=== PATIENT | male | born 1955 | race Caucasian/White ===

== ENCOUNTER 2019-12-13 13:43 | Inpatient (IN) | payer OTHER ==
--- NOTE | 2019-12-13 13:56 | ED ---
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 Patient uses 4L oxygen at home normally. He had to turn his oxygen up to 8L today. He has also been using his nebulizer at home. The patient rates the pain 3/10 in severity. Symptoms aggravated by nothing. Symptoms alleviated by supplemental oxygen and nebulizer. Patient states he has 30% lung capacity in both lungs. He was on lung transplant list at the [facility] a few years ago but taken off because they found out his smokes cigarettes. No recent admissions to hospital in the last few months. No hx DVT, PE, NC. Medications reviewed. Former smoker. Home Medications Medication Instructions Recorded Confirmed Type Albuterol HFA INHALER* [Ventolin 2 puff INH Q4H PRN 10/29/12 06/20/15 History HFA Inhaler*] Lisinopril TAB* [Prinivil TAB 10 10 mg PO DAILY 10/29/12 06/20/15 History MG*] Simvastatin TAB(NF) [Zocor 20 MG 20 mg PO DAILY 10/29/12 06/20/15 History (NF)] Tiotropium CAPSULE (NF) [Spiriva*] 1 cap PO DAILY 10/29/12 06/20/15 History Albuterol 2.5MG/3ML (0.083%)* 2.5 mg INH Q4H PRN 04/29/13 06/20/15 History [Ventolin 2.5 MG/3 ML NEB.ROME*] Aspirin EC TAB* [Aspirin Low Dose 81 mg PO DAILY 04/29/13 06/20/15 History EC*] Calcium Polycarbophil [Fiber 625 mg PO DAILY 04/29/13 06/20/15 History Laxative] Fluticasone-Salmeterol 250-50* 1 puff INH BID 04/29/13 06/20/15 History [Advair Diskus 250-50*] Vitamin E CAP* [Vitamin E] 200 unit PO DAILY 04/29/13 06/20/15 History Budesonide (Inhalation) 06/20/15 06/20/15 History Roflumilast [Daliresp] 500 mcg PO 06/20/15 06/20/15 History predniSONE 20 mg TAB [Deltasone 20 40 mg PO DAILY #8 tab 06/14/16 Rx MG TAB*] - History of Current Complaint Chief Complaint: EDShortnessOfBreath Time Seen by Provider: 12/13/19 13:49 Hx Obtained From: Patient Onset/Duration: Lasting Weeks - 4, Still Present Timing: Constant Current Severity: Mild Aggravating Factors: Nothing Alleviating Factors: Oxygen, Other - nebulizer - Allergy/Home Medications Allergies/Adverse Reactions: Allergies Allergy/AdvReac Type Severity Reaction Status Date / Time No Known Allergies Allergy Verified 12/13/19 13:49 Home Medications: Home Medications Albuterol HFA INHALER* [Ventolin HFA Inhaler*] 2 puff INH Q4H PRN 10/29/12 [ History Confirmed 06/20/15] Lisinopril TAB* [Prinivil TAB 10 MG*] 10 mg PO DAILY 10/29/12 [History Confirmed 06/20/15] Simvastatin TAB(NF) [Zocor 20 MG (NF)] 20 mg PO DAILY 10/29/12 [History Confirmed 06/20/15] Tiotropium CAPSULE (NF) [Spiriva*] 1 cap PO DAILY 10/29/12 [History Confirmed ] Albuterol 2.5MG/3ML (0.083%)* [Ventolin 2.5 MG/3 ML NEB.ROME*] 2.5 mg INH Q4H PRN 04/29/13 [History Confirmed 06/20/15] Aspirin EC TAB* [Aspirin Low Dose EC*] 81 mg PO DAILY 04/29/13 [History Confirmed 06/20/15] Calcium Polycarbophil [Fiber Laxative] 625 mg PO DAILY 04/29/13 [History Confirmed 06/20/15] Fluticasone-Salmeterol 250-50* [Advair Diskus 250-50*] 1 puff INH BID 04/29/13 [ History Confirmed 06/20/15] Vitamin E CAP* [Vitamin E] 200 unit PO DAILY 04/29/13 [History Confirmed ] Budesonide (Inhalation) 06/20/15 [History Confirmed 06/20/15] Roflumilast [Daliresp] 500 mcg PO 06/20/15 [History Confirmed 09/13/15] predniSONE 20 mg TAB [Deltasone 20 MG TAB*] 40 mg PO DAILY #8 tab 06/14/16 [Rx] PMH/Surg Hx/FS Hx/Imm Hx Endocrine/Hematology History: Denies: Hx Anticoagulant Therapy, Hx Diabetes, Hx Thyroid Disease Cardiovascular History: Reports: Hx Hypertension Denies: Hx Congestive Heart Failure, Hx Pacemaker/ICD Respiratory History: Reports: Hx Asthma, Hx Chronic Obstructive Pulmonary Disease (COPD), Hx Pneumonia, Other Respiratory Problems/Disorders - PNEUMONIA Sensory History: Reports: Hx Contacts or Glasses Opthamlomology History: Reports: Hx Contacts or Glasses - Surgical History Surgery Procedure, Year, and Place: Knee surgery 1991 - Immunization History Date of Tetanus Vaccine: Up to date Date of Influenza Vaccine: Fall 2013 Infectious Disease History: No Infectious Disease History: Denies: Hx Hepatitis, Hx Human Immunodeficiency Virus (HIV), Hx of Known/ Suspected MRSA, Traveled Outside the in Last 30 Days - Family History Known Family History: Positive: Cardiac Disease - CHF, Other - strokes - Social History Alcohol Use: Daily Alcohol Amount: 3-4 drinks a day or more Substance Use Type: Reports: None Hx Tobacco Use: Yes Smoking Status (MU): Former Smoker Type: Cigarettes Have You Smoked in the Last Year: Yes Review of Systems Negative: Fever Positive: Shortness Of Breath, Cough All Other Systems Reviewed And Are Negative: Yes Physical Exam - Summary Physical Exam Summary: Constitutional: Well-developed, Well-nourished, Alert. (-) Distressed Skin: Warm, Dry HENT: Normocephalic; Atraumatic Eyes: Conjunctiva normal Neck: Musculoskeletal ROM normal neck. (-) JVD, (-) Stridor, (-) Tracheal deviation Cardio: Rhythm regular, rate normal, Heart sounds normal; Intact distal pulses; The pedal pulses are 2+ and symmetric. Radial pulses are 2+ and symmetric. (-) Murmur Pulmonary/Chest wall: Effort normal. (-) Respiratory distress, Faint bilateral wheezing, (-) Rales Abd: Soft, (-) tenderness, (-) Distension, (-) Guarding, (-) Rebound Musculoskeletal: (-) Edema Lymph: (-) Cervical adenopathy Neuro: Alert, Oriented x3 Psych: Mood and affect Normal Triage Information Reviewed: Yes Vital Signs On Initial Exam: Initial Vitals Temp Pulse Resp BP Pulse Ox 98.1 F 88 26 157/110 100 12/13/19 13:44 12/13/19 13:44 12/13/19 13:44 12/13/19 13:44 12/13/19 13:44 Vital Signs Reviewed: Yes Procedures - Sedation Patient Received Moderate/Deep Sedation with Procedure: No Diagnostics - Vital Signs Vital Signs Temp Pulse Resp BP Pulse Ox 12/13/19 13:44 98.1 F 88 26 157/110 100 - Laboratory Result Diagrams: 12/13/19 14:10 12/13/19 14:10 Lab Statement: Any lab studies that have been ordered have been reviewed, and results considered in the medical decision making process. - Radiology CXR Radiology Interpretation Completed By: Radiologist - IMPRESSION: #. High probability for pneumonia at the RIGHT upper lobe. Radiographic follow-up after therapy warranted to assess for resolution. #. Evidence for advanced chronic obstructive pulmonary disease and emphysema. ED physician has reviewed this imaging report. - EKG 1426 Cardiac Rate: NL - 90 BPM EKG Rhythm: Sinus Rhythm Summary of EKG Findings: No ischemic changes. ED physician has reviewed and interpreted this EKG. Re-Evaluation - Re-Evaluation First Eval Re-Evaluation Time: 15:10 Comment: patient agrees to d/c Course/Dx - Course Course Of Treatment: 64 y/o M with hx COPD c/o worsening shortness of breath and productive cough with clear phlegm x1 month. He uses 4L oxygen at home normally. He had to turn his oxygen up to 8L today. He has also been using his nebulizer at home. He states he has 30% lung capacity in both lungs. [facility]. No recent admissions to hospital in the last few months. Upon physical exam, he has faint bilateral wheezing. Bloodwork results with no significant abnormalities except for RBC 3.79, Hgb 12.8, Hct 36, MCV 96, MCH 34, chloride 100, BNP 128, globulin 4.1. An EKG shows NSR 90 BPM and no ischemic changes. CXR shows #. High probability for pneumonia at the RIGHT upper lobe. Radiographic follow-up after therapy warranted to assess for resolution. #. Evidence for advanced chronic obstructive pulmonary disease and emphysema. In the ED course, the patient was given Duoneb, azithromycin, Solumedrol, normal saline fluids, ceftriaxone. Spoke with Dr. Andrade. She agrees to admit the patient. - Diagnoses Provider Diagnoses: Pneumonia, COPD exacerbation - Physician Notifications Discussed Care of Patient With: Winsome Andrade Time Discussed With Above Provider: 15:07 Instructed by Provider To: Admit As Inpatient Discharge ED - Sign-Out/Discharge Documenting (check all that apply): Patient Departure - Discharge Plan Condition: Stable Disposition: ADMITTED TO [facility] Referrals: Cathy Lindo [Primary Care Provider] - - Billing Disposition and Condition Condition: STABLE Disposition: Admitted to [facility] - Attestation Statements Document Initiated by Scribe: Yes Documenting Scribe: Delmi Beard Provider For Whom Scribe is Documenting (Include Credential): Irineo Soler DO Scribe Attestation: Delmi Quigley scribed for Irineo Soler DO on 12/13/19 at 1526. Scribe Documentation Reviewed: Yes Provider Attestation: The documentation as recorded by the Delmi staton accurately reflects the service I personally performed and the decisions made by Irineo rogers DO Status of Scribgavi Document: Viewed
[2019-12-13] MEDS ORDERED: NS 0.9% 1000 ML** 1,000 ML IV ONE (14:03)
[2019-12-13] MEDS ORDERED: Albuterol/Ipratropium NEB.SOL* Albuterol 2.5 MG/Ipratropium 0.5 MG 3 ML INH ONE ×2 (14:04→14:45)
[2019-12-13 14:18] LABS: ABS Basophils 0.1 10^3/ul (0-0.2); ABS Eosinophils 1.5 10^3/ul (0-0.6); ABS Lymphocytes 1.8 10^3/ul (1.0-4.8); ABS Monocytes 0.6 10^3/ul (0-0.8); ABS Neutrophils 4.6 10^3/ul (1.5-7.7); Eosinophil % 17.4 %; Hematocrit 36 % (42-52); Hemoglobin 12.8 g/dL (14.0-18.0); Lymphocyte % 21.4 %; Mean Corpuscular HGB Conc 35 g/dL (31-36); Mean Corpuscular Hemoglobin 34 pg (27-31); Mean Corpuscular Volume 96 fL (80-94); Mean Platelet Volume 8.1 fL (7.4-10.4); Nucleated Red Blood Cells % 0.1; Platelet Count 362 10^3/uL (150-450); Red Blood Count 3.79 10^6 /uL (4.18-5.48); Red Cell Distribution Width 14 % (10-15); White Blood Count 8.5 10^3/uL (3.5-10.8)
[2019-12-13 14:43] LABS: Troponin I 0.01 ng/mL (<0.03)
[2019-12-13] MEDS ORDERED: cefTRIAXone(*) 1 GM in NS 0.9% 50 ML* 50 ML IVPB ONE (14:44)
[2019-12-13] MEDS ORDERED: Azithromycin 500 mg/250 ml NS 500 MG/250 ML BAG IVPB ONE (14:44)
[2019-12-13] MEDS ORDERED: methylPREDNISolone 125 MG* 2 ML VIAL IV ONE (14:45)
[2019-12-13 14:53] LABS: ALT 29 U/L (7-52); AST 31 U/L (13-39); Albumin 4.3 g/dL (3.2-5.2); Alkaline Phosphatase 96 U/L (34-104); Anion Gap 9 mmol/L (2-11); BUN/Creatinine Ratio 9.9 (8-20); Blood Urea Nitrogen 11 mg/dL (6-24); CO2 Carbon Dioxide 29 mmol/L (22-32); Calcium 10.1 mg/dL (8.6-10.3); Chloride 100 mmol/L (101-111); EGFR African American 80.7 (>60); EGFR Non-African American 66.7 (>60); Globulin 4.1 g/dL (2-4); Glucose 95 mg/dL (70-100); Potassium 4.3 mmol/L (3.5-5.0); Sodium 138 mmol/L (135-145); Total Protein 8.4 g/dL (6.4-8.9)
[2019-12-13] MEDS ORDERED: Ondansetron INJ* 2 MG/ML VIAL IV PRN (15:52)
[2019-12-13] MEDS ORDERED: Albuterol 2.5 MG/3 ML NEB.SOL* (0.083%) INH PRN (15:52)
[2019-12-13 15:56] LABS: C Reactive Protein 5.68 mg/L (<8.01)
[2019-12-13] MEDS: Enoxaparin(*) 40 MG/0.4 ML SYR SUBCUT SCH (16:16)
[2019-12-13] MEDS: Benzonatate CAP* 100 MG PO PRN ×2 (16:16→21:21)
[2019-12-13] MEDS: Acetaminophen TAB* 325 MG PO PRN (16:16)
[2019-12-13 16:23] LABS: Folate > 20.00 ng/mL (>3.99)
--- NOTE | 2019-12-13 20:21 | HP ---
CC: Cathy Lindo NP * ADMISSION HISTORY AND PHYSICAL: DATE OF ADMISSION: 12/13/19 PRIMARY CARE PROVIDER: Cathy Lindo NP MY ATTENDING WHILE IN THE HOSPITAL: Winsome Andrade MD * (DICTATED BY FARZAD KHAN) CHIEF COMPLAINT: Shortness of breath x5 weeks. HISTORY OF PRESENT ILLNESS: Mr. Gonzalez is a 64-year-old male with a past medical history significant for severe COPD, hypertension, hyperlipidemia, who presents to the emergency department after feeling poorly for about 5 weeks. He states this started with upper respiratory infection and cold, where he had nasal drainage and some cough. He does not know where he got this from. He had no sick contacts, no recent changes in his meds; however, he felt poorly with this for about 2 weeks, but then began to feel better, felt about normal for 1 week and then started feeling worse again with worsening cough, shortness of breath, decreased functional capacity. He states he previously walked 110 feet sometimes without oxygen on. At this point, even on 4 L of oxygen, he is unable to walk greater than 30 feet without having to stop. The patient has not changed his medications. The patient has taken what he states 20 total albuterol nebulizers in the past 3 days without much improvement in addition to his chronic COPD treatments. The patient has not been hospitalized for COPD since 2014. The patient follows with abstract manager in [place]. The patient was previously in the lung transplant list, but he has been taken off the lung transplant list. The patient has not traveled outside the country. The patient has no close associates who traveled outside the country or no known foreign associates. The patient in the emergency department was found to be markedly tachypneic, but saturating well on 4 L of oxygen, which is his home dose. The patient denies any chest pain, dizziness, palpitations, fevers, or chills. The patient does have a cough, but it does not bring up much sputum. The patient has not seen his primary care provider for this issue. Due to concern for COPD, aspiration pneumonia, we were asked to evaluate the patient for admission to the hospital PAST MEDICAL HISTORY: 1. COPD. 2. Hypertension. 3. Hyperlipidemia. PAST SURGICAL HISTORY: Bilateral knee surgery. MEDICATIONS: 1. Albuterol nebulizer 2.5 mg inhalation q.4 hours. 2. Albuterol inhaler 2 puffs inhalation q.4 hours. 3. Budesonide/formoterol 160/4.5 two puffs inhalation b.i.d. 4. Lisinopril 20 mg p.o. daily. 5. Roflumilast 500 mcg p.o. daily. 6. Simvastatin 20 mg p.o. daily. 7. Tiotropium 18 mcg inhalation daily. 8. Ferrous sulfate 324 mg p.o. daily. ALLERGIES: No known drug allergies. FAMILY HISTORY: The patient's father at 57 of heart attack and had diabetes. The patient's mother in her 80s of COPD and had congestive heart failure as well. SOCIAL HISTORY: The patient has an 80-pack year smoking history. The patient quit smoking 6 years ago. The patient drinks 2 to 4 beers a day. The patient denies any illicit drug use. 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 The patient is a and has no children. The patient's surrogate decision maker will be long time associate, Ahsan Kelly. REVIEW OF SYSTEMS: A 10-point review of systems was reviewed and is negative except as above in the HPI. PHYSICAL EXAMINATION GENERAL: The patient is a 64-year-old male, who appears stated age, sitting comfortably in bed, in no acute distress with significantly increased work of breathing. VITAL SIGNS: Temperature 98.3, pulse rate 80, respiratory rate 18, oxygen saturation 98% on room air, blood pressure 134/78. HEENT: Head: Normocephalic, atraumatic. Sclerae anicteric. No conjunctival injection. Nasal mucosa moist. Oral mucosa moist. No pharyngeal erythema, discharge, or exudate. NECK: Supple, nontender. No lymphadenopathy. No carotid bruit auscultated. No JVD. RESPIRATORY: Wheezing throughout. Rhonchi heard in the right upper lobe. Poor air exchange. CARDIAC: Tachycardic. No clicks, murmurs, gallops, or rubs. Pulses 2+ in the dorsalis pedis, posterior tibialis, and radial areas. ABDOMEN: Soft, nontender, nondistended. Bowel sounds present. Normoactive in all 4 quadrants. No hepatosplenomegaly. No abdominal bruits auscultated. No hepatojugular reflux. GENITOURINARY: No suprapubic or CVA tenderness. NEURO: Cranial nerves II through XII intact. No focal deficits. Alert and oriented x3. PSYCHIATRIC: Pleasant and cooperative. SKIN: Clean, dry, intact. No rashes. DIAGNOSTIC STUDIES/LAB DATA: White blood cell count 8.5, hemoglobin 12.8, platelet count 362. Sodium 138, potassium 4.3, chloride 100, carbon dioxide 29 , anion gap 9, BUN 11, creatinine 1.11. Lactic acid 1.9. Calcium 10.1. Bilirubin 0.3, AST 31, ALT 29, alkaline phosphatase 96. Troponin I 0.01. CRP 5.68. BNP 128. Protein 8.4. Albumin 4.3, globulin 4.1. Studies: Electrocardiogram shows sinus tachycardia, no ST elevation, depression , or hypertrophy, possible right atrial enlargement, normal axis, intraventricular conduction delay. Chest x-ray read as high probable pneumonia in the right upper lobe. ASSESSMENT AND PLAN: Impression: Mr. Gonzalez is a 64-year-old male with a past medical history significant for chronic obstructive pulmonary disease, hypertension, hyperlipidemia who presents to the emergency department after 5 weeks of feeling poorly with double sickening phenomenon and chest x-ray consistent with bacterial lobar pneumonia. The patient will be admitted to the hospital for treatment of concomitant chronic obstructive pulmonary disease exacerbation and pneumonia. 1. Chronic obstructive pulmonary disease exacerbation, pneumonia. The patient has right upper lobe infiltrate. Though the patient has a CRP of 5.68, given his clinical syndrome and his chest x-ray findings, the patient will be treated with antibiotics. Given the patient's extensive smoking history, the patient to follow up with his abstract manager outpatient after full treatment to assess to see if this represents an underlying lesion. The patient would be likely eligible for a screening CT of his lungs. Regardless, this infiltrate was not present on a 2015 chest thorax CTA. The patient was given Solu-Medrol, antibiotics and DuoNeb nebulizers while in the emergency department. These will be continued as scheduled. The patient will be continued as well on ceftriaxone, azithromycin, and Solu-Medrol 60 mg IV q.12 hours. The patient will also continue on his home roflumilast and triple inhaler therapy. Sputum culture will be attempted to be obtained and urinary antigens for legionella and Strep pneumo will also be obtained. The patient will have aggressive pulmonary toileting and cough suppression as needed. 2. Hypertension. The patient is currently hypertensive. Continue the patient' s lisinopril. 3. Hyperlipidemia. Continue the patient's simvastatin. 4. FEN: The patient will have regular unrestricted diet. Fluids not indicated at this time. 5. Disposition: The patient will be admitted as observation to the hospital. TIME SPENT: Approximately 60 minutes was spent on this admission of this patient, 30 of which was spent [id number] with the patient obtaining history and physical and discussing treatment plan. This plan has been discussed with my attending, Dr. Winsome Andrade, she is in agreement. FARZAD KHAN [id number]/[facility] #: [id number] TEJ
[2019-12-13] MEDS: guaiFENesin ER TAB 600 MG PO SCH (21:21)
[2019-12-13] MEDS: Mometasone/Formoter 200/5 MDI INH SCH (22:03)
[2019-12-13] MEDS: Albuterol/Ipratropium NEB.SOL* Albuterol 2.5 MG/Ipratropium 0.5 MG 3 ML INH SCH ×2 (22:04→22:20)
[2019-12-14] MEDS: Acetaminophen TAB* 325 MG PO PRN ×3 (01:52→15:49)
[2019-12-14] MEDS: Benzocaine/Menthol LOZ* 1 LOZENGE PO PRN ×4 (01:53→21:18)
[2019-12-14] MEDS: Albuterol/Ipratropium NEB.SOL* Albuterol 2.5 MG/Ipratropium 0.5 MG 3 ML INH SCH ×5 (03:56→20:44)
[2019-12-14] MEDS: methylPREDNISolone 125 MG* 2 ML VIAL IV SCH ×2 (05:17→17:52)
[2019-12-14 06:04] LABS: ABS Lymphocytes 1.5 10^3/ul (1.0-4.8); ABS Monocytes 0.2 10^3/ul (0-0.8); ABS Neutrophils 5.5 10^3/ul (1.5-7.7); Eosinophil % 0.1 %; Hematocrit 35 % (42-52); Hemoglobin 12.1 g/dL (14.0-18.0); Mean Corpuscular HGB Conc 35 g/dL (31-36); Mean Corpuscular Hemoglobin 33 pg (27-31); Mean Corpuscular Volume 95 fL (80-94); Mean Platelet Volume 8.3 fL (7.4-10.4); Platelet Count 338 10^3/uL (150-450); Red Blood Count 3.65 10^6 /uL (4.18-5.48); Red Cell Distribution Width 14 % (10-15); White Blood Count 7.3 10^3/uL (3.5-10.8)
[2019-12-14 06:21] LABS: BUN/Creatinine Ratio 15.1 (8-20); Calcium 9.5 mg/dL (8.6-10.3); EGFR African American 69.7 (>60); EGFR Non-African American 57.6 (>60); Magnesium 1.7 mg/dL (1.9-2.7); Potassium 4.3 mmol/L (3.5-5.0)
[2019-12-14] MEDS: Mometasone/Formoter 200/5 MDI INH SCH ×2 (07:17→20:44)
[2019-12-14] MEDS: SPIRIVA Respimat* (tiotropium) 2.5 mcg/inh Inhaler INH SCH (07:17)
[2019-12-14] MEDS ORDERED: Magnesium Sulfate 2 GM IV* 2 GM/50 ML BAG IVPB ONE (07:58)
[2019-12-14] MEDS: Atorvastatin* 10 MG TAB PO SCH (08:34)
[2019-12-14] MEDS: Aspirin EC TAB* 81 MG TAB.EC PO SCH (08:34)
[2019-12-14] MEDS: Ferrous Sulfate TAB* 325 MG PO SCH (08:34)
[2019-12-14] MEDS: Benzonatate CAP* 100 MG PO PRN ×2 (08:35→21:18)
[2019-12-14] MEDS: guaiFENesin ER TAB 600 MG PO SCH ×2 (08:35→21:18)
[2019-12-14] MEDS ORDERED: Lisinopril TAB* 10 MG PO SCH (09:00)
--- NOTE | 2019-12-14 11:00 | PN ---
Subjective Date of Service: 12/14/19 Interval History: Pt reports that he is still feeling poorly. Reports frequent dry cough denies SOB while laying down. Pt denies chest pain, N/V. Family History: Unchanged from Admission Social History: Unchanged from Admission Past Medical History: Unchanged from Admission Objective Active Medications: Acetaminophen (Tylenol Tab*) 650 mg PO Q6H PRN PRN Reason: MILD PAIN or TEMP > 100.4 Last Admin: 12/14/19 08:35 Dose: 650 mg Albuterol (Ventolin 2.5 Mg/3 Ml Neb.Sharon*) 2.5 mg INH Q2H PRN PRN Reason: SOB/WHEEZING Albuterol/Ipratropium (Duoneb (Albuterol 2.5 Mg/Ipratropium 0.5 Mg)) 1 neb INH [id number] AWAKE [facility] Last Admin: 12/14/19 07:15 Dose: 1 neb Aspirin (Aspirin Ec Tab*) 81 mg PO DAILY [facility] Last Admin: 12/14/19 08:34 Dose: 81 mg Atorvastatin Calcium (Lipitor*) 10 mg PO DAILY [facility] Last Admin: 12/14/19 08:34 Dose: 10 mg Benzonatate (Tessalon Cap*) 100 mg PO BID PRN PRN Reason: COUGH Last Admin: 12/14/19 08:35 Dose: 100 mg Enoxaparin Sodium (Lovenox(*)) 40 mg SUBCUT Q24H [facility] Last Admin: 12/13/19 16:16 Dose: 40 mg Ferrous Sulfate (Ferrous Sulfate Tab*) 325 mg PO DAILY [facility] Last Admin: 12/14/19 08:34 Dose: 325 mg Guaifenesin (Mucinex*) 1,200 mg PO BID [facility] Last Admin: 12/14/19 08:35 Dose: 1,200 mg Azithromycin 250 mg/ Sodium (Chloride) 250 mls @ 250 mls/hr IVPB Q24H [facility] Ceftriaxone Sodium 1 gm/ (Sodium Chloride) 50 mls @ 200 mls/hr IVPB Q24H [facility] Lisinopril (Prinivil Tab*) 20 mg PO DAILY [facility] Last Admin: 12/14/19 08:34 Dose: 20 mg Methylprednisolone Sodium Succinate (Solu-Medrol 125mg *) 60 mg IV Q12H [facility] Last Admin: 12/14/19 05:17 Dose: 60 mg Mometasone Furoate/Formoterol Fumar (Dulera 200/5 Mdi*) 2 puff INH BID JAZMINE; Protocol Last Admin: 12/14/19 07:17 Dose: 2 puff Ondansetron HCl (Zofran Inj*) 4 mg IV Q6H PRN PRN Reason: NAUSEA Roflumilast (Daliresp (Nf)) 500 mcg PO DAILY JAZMINE Throat Lozenges (Chloraseptic Cisco*) 1 cisco PO Q6H PRN PRN Reason: SORE THROAT Last Admin: 12/14/19 08:35 Dose: 1 cisco Tiotropium [place] (Spiriva Respimat 2.5 Mcg) 2 puff INH DAILY JAZMINE Last Admin: 12/14/19 07:17 Dose: 2 puff Vital Signs - 8 hr 12/14/19 12/14/19 12/14/19 03:00 07:21 07:23 Temperature 97.8 F Pulse Rate 93 77 Respiratory 20 18 Rate Blood Pressure 147/90 (mmHg) O2 Sat by Pulse 100 99 99 Oximetry Oxygen Devices in Use Now: Nasal Cannula Appearance: Sitting up in bed watching TV chatting with pt volunteer at bedside. No respiratory distress observed. Eyes: No Scleral Icterus, PERRLA Ears/Nose/Mouth/Throat: NL Teeth, Lips, Gums, Clear Oropharnyx, Mucous Membranes Moist Neck: NL Appearance and Movements; NL JVP, Trachea Midline, No Thyroid Enlargement, Masses Respiratory: Symmetrical Chest Expansion and Respiratory Effort, - - Coarse rhonchi and wheezes auscultated throughout all lung whyte. Cardiovascular: NL Sounds; No Murmurs; No JVD, RRR, No Edema Abdominal: NL Sounds; No Tenderness; No Distention, No Hepatosplenomegaly Lymphatic: No Cervical Adenopathy Extremities: No Edema, No Clubbing, Cyanosis Skin: No Rash or Ulcers, No Nodules or Sclerosis Neurological: Alert and Oriented x 3, NL Sensation, NL Muscle Strength and Tone Result Diagrams: 12/14/19 05:38 12/14/19 05:38 Microbiology and Other Data: Microbiology 12/13/19 16:10 Gram Stain - Final Sputum Expectorated Assess/Plan/Problems-Billing Assessment: - Patient Problems (1) Pneumonia Current Visit: Yes Comment: -Wheezes auscultated throughout all lung whyte -CXR shows high probability for Pneumonia Right upper lobe -Ceftriaxone and Azithromycin IV (2) COPD exacerbation Current Visit: No Comment: -The patient reports that he does not feel much better than arrival. Pt continues to have dry hacking cough after periods of talking. -Continue Rofumilast, Spiriva, Dulera, Albuterol nebs. -Start Solumedrol IV -Bensontate and Guaifenesin PRN (3) HTN (hypertension) Current Visit: No Comment: - lisinopril continue to monitor (4) Hyperlipidemia Current Visit: Yes Comment: -Atorvastatin daily (5) Full code status Current Visit: No (6) DVT prophylaxis Current Visit: No Comment: -SQ Lovenox
[2019-12-14] MEDS: ROFLUMILAST 500 MCG PO SCH (14:32)
[2019-12-14] MEDS: Azithromycin IV(*) 250 MG in NS 0.9% 250 ML* 250 ML IVPB SCH (15:49)
[2019-12-14] MEDS: Enoxaparin(*) 40 MG/0.4 ML SYR SUBCUT SCH (15:50)
[2019-12-14] MEDS: cefTRIAXone(*) 1 GM in NS 0.9% 50 ML* 50 ML IVPB SCH (17:40)
[2019-12-14] MEDS: Calcium Carbonate CHEW TAB* 500 MG (TUMS) PO PRN (17:55)
[2019-12-14] MEDS ORDERED: Acetaminophen / Codeine* #3 (300 MG/30 MG) TAB PO ONE (21:30)
[2019-12-15] MEDS: Albuterol/Ipratropium NEB.SOL* Albuterol 2.5 MG/Ipratropium 0.5 MG 3 ML INH SCH ×6 (03:22→19:39)
[2019-12-15] MEDS: methylPREDNISolone 125 MG* 2 ML VIAL IV SCH (05:55)
[2019-12-15] MEDS: Benzocaine/Menthol LOZ* 1 LOZENGE PO PRN ×3 (06:02→15:15)
[2019-12-15] MEDS: Mometasone/Formoter 200/5 MDI INH SCH ×2 (07:38→19:40)
[2019-12-15] MEDS: SPIRIVA Respimat* (tiotropium) 2.5 mcg/inh Inhaler INH SCH (07:38)
[2019-12-15] MEDS: Aspirin EC TAB* 81 MG TAB.EC PO SCH (09:33)
[2019-12-15] MEDS: Ferrous Sulfate TAB* 325 MG PO SCH (09:33)
[2019-12-15] MEDS: Atorvastatin* 10 MG TAB PO SCH (09:33)
[2019-12-15] MEDS: guaiFENesin ER TAB 600 MG PO SCH ×2 (09:34→20:05)
[2019-12-15] MEDS: Magnesium Oxide TAB* 400 MG PO SCH (09:34)
[2019-12-15] MEDS: ROFLUMILAST 500 MCG PO SCH ×2 (09:37→10:48)
[2019-12-15 09:40] LABS: BUN/Creatinine Ratio 20.5 (8-20); Calcium 9.7 mg/dL (8.6-10.3); EGFR African American 75.9 (>60); EGFR Non-African American 62.8 (>60); Potassium 4.1 mmol/L (3.5-5.0)
--- NOTE | 2019-12-15 10:57 | PN ---
Subjective Date of Service: 12/15/19 Interval History: Pt feels "70% better than at admission", nevertheless continues on saying that he still feels very sick and with cough attacks he can't breathe. Family History: Unchanged from Admission Social History: Unchanged from Admission Past Medical History: Unchanged from Admission Objective Active Medications: Acetaminophen (Tylenol Tab*) 650 mg PO Q6H PRN PRN Reason: MILD PAIN or TEMP > 100.4 Last Admin: 12/14/19 15:49 Dose: 650 mg Albuterol (Ventolin 2.5 Mg/3 Ml Neb.Sharon*) 2.5 mg INH Q2H PRN PRN Reason: SOB/WHEEZING Albuterol/Ipratropium (Duoneb (Albuterol 2.5 Mg/Ipratropium 0.5 Mg)) 1 neb INH [id number] AWAKE [facility] Last Admin: 12/15/19 07:35 Dose: 1 neb Aspirin (Aspirin Ec Tab*) 81 mg PO DAILY [facility] Last Admin: 12/15/19 09:33 Dose: 81 mg Atorvastatin Calcium (Lipitor*) 10 mg PO DAILY [facility] Last Admin: 12/15/19 09:33 Dose: 10 mg Benzonatate (Tessalon Cap*) 100 mg PO BID PRN PRN Reason: COUGH Last Admin: 12/14/19 21:18 Dose: 100 mg Calcium Carbonate (Tums*) 500 mg PO Q4H PRN PRN Reason: DYSPEPSIA Last Admin: 12/14/19 17:55 Dose: 500 mg Enoxaparin Sodium (Lovenox(*)) 40 mg SUBCUT Q24H [facility] Last Admin: 12/14/19 15:50 Dose: 40 mg Ferrous Sulfate (Ferrous Sulfate Tab*) 325 mg PO DAILY [facility] Last Admin: 12/15/19 09:33 Dose: 325 mg Guaifenesin (Mucinex*) 1,200 mg PO BID [facility] Last Admin: 12/15/19 09:34 Dose: 1,200 mg Azithromycin 250 mg/ Sodium (Chloride) 250 mls @ 250 mls/hr IVPB Q24H [facility] Last Admin: 12/14/19 15:49 Dose: 250 mls/hr Ceftriaxone Sodium 1 gm/ (Sodium Chloride) 50 mls @ 200 mls/hr IVPB Q24H [facility] Last Admin: 12/14/19 17:40 Dose: 200 mls/hr Magnesium Oxide (Magox 400 Tab*) 800 mg PO DAILY [facility] Last Admin: 12/15/19 09:34 Dose: 800 mg Methylprednisolone Sodium Succinate (Solu-Medrol 125mg *) 40 mg IV Q12H [facility] Mometasone Furoate/Formoterol Fumar (Dulera 200/5 Mdi*) 2 puff INH BID [facility]; Protocol Last Admin: 12/15/19 07:38 Dose: 2 puff Ondansetron HCl (Zofran Inj*) 4 mg IV Q6H PRN PRN Reason: NAUSEA Roflumilast (Daliresp (Nf)) 500 mcg PO DAILY [facility] Last Admin: 12/15/19 10:48 Dose: 500 mcg Throat Lozenges (Chloraseptic Cisco*) 1 cisco PO Q6H PRN PRN Reason: SORE THROAT Last Admin: 12/15/19 08:08 Dose: 1 cisco Tiotropium [place] (Spiriva Respimat 2.5 Mcg) 2 puff INH DAILY [facility] Last Admin: 12/15/19 07:38 Dose: 2 puff Vital Signs - 8 hr 12/15/19 12/15/19 12/15/19 03:10 04:00 07:15 Temperature 97.8 F 98.1 F Pulse Rate 76 79 76 Respiratory 18 17 18 Rate Blood Pressure 133/89 152/87 (mmHg) O2 Sat by Pulse 100 96 100 Oximetry 12/15/19 12/15/19 07:40 08:00 Temperature Pulse Rate 93 Respiratory 18 18 Rate Blood Pressure (mmHg) O2 Sat by Pulse 99 Oximetry Oxygen Devices in Use Now: Nasal Cannula Appearance: 64 yo m in nAD, AAOx3 Eyes: No Scleral Icterus, PERRLA Ears/Nose/Mouth/Throat: NL Teeth, Lips, Gums, Mucous Membranes Moist Neck: NL Appearance and Movements; NL JVP, Trachea Midline Respiratory: Symmetrical Chest Expansion and Respiratory Effort, - - diffuse b/ l wheezes Cardiovascular: NL Sounds; No Murmurs; No JVD, RRR Abdominal: NL Sounds; No Tenderness; No Distention Lymphatic: No Cervical Adenopathy Extremities: No Edema Skin: No Rash or Ulcers, No Nodules or Sclerosis Neurological: Alert and Oriented x 3, NL Muscle Strength and Tone Result Diagrams: 12/14/19 05:38 12/15/19 09:01 Microbiology and Other Data: Microbiology 12/13/19 16:10 Gram Stain - Final Sputum Expectorated Assess/Plan/Problems-Billing Assessment: 64 yo M with h/o 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 -Continue Rofumilast, Spiriva, Dulera, Albuterol nebs. -start tapering down Solumedrol IV (3) HTN (hypertension) Comment: - lisinopril continue to monitor (4) Creatinine elevation Comment: with improvement today, cont to monitor (5) DVT prophylaxis Comment: -SQ Lovenox Status and Disposition: inpatient
[2019-12-15] MEDS: cefTRIAXone(*) 1 GM in NS 0.9% 50 ML* 50 ML IVPB SCH (16:01)
[2019-12-15] MEDS: Enoxaparin(*) 40 MG/0.4 ML SYR SUBCUT SCH (16:02)
[2019-12-15] MEDS: methylPREDNISolone SOD 40 MG* 1 ML VIAL IV SCH (16:02)
[2019-12-15] MEDS: Azithromycin IV(*) 250 MG in NS 0.9% 250 ML* 250 ML IVPB SCH (16:30)
[2019-12-15] MEDS: Acetaminophen TAB* 325 MG PO PRN (23:34)
[2019-12-15] MEDS: Calcium Carbonate CHEW TAB* 500 MG (TUMS) PO PRN (23:35)
[2019-12-16] MEDS: Albuterol/Ipratropium NEB.SOL* Albuterol 2.5 MG/Ipratropium 0.5 MG 3 ML INH SCH ×5 (00:24→19:48)
[2019-12-16] MEDS: methylPREDNISolone SOD 40 MG* 1 ML VIAL IV SCH (03:52)
[2019-12-16] MEDS: Benzonatate CAP* 100 MG PO PRN (03:52)
[2019-12-16] MEDS: Benzocaine/Menthol LOZ* 1 LOZENGE PO PRN ×2 (07:33→22:51)
[2019-12-16] MEDS: Mometasone/Formoter 200/5 MDI INH SCH ×2 (07:44→19:48)
[2019-12-16] MEDS: SPIRIVA Respimat* (tiotropium) 2.5 mcg/inh Inhaler INH SCH (07:45)
[2019-12-16] MEDS: Lisinopril TAB* 10 MG PO SCH (09:24)
[2019-12-16] MEDS: ROFLUMILAST 500 MCG PO SCH (09:24)
[2019-12-16] MEDS: guaiFENesin ER TAB 600 MG PO SCH (09:24)
[2019-12-16] MEDS: Atorvastatin* 10 MG TAB PO SCH (09:24)
[2019-12-16] MEDS: Magnesium Oxide TAB* 400 MG PO SCH (09:24)
[2019-12-16] MEDS: Aspirin EC TAB* 81 MG TAB.EC PO SCH (09:24)
[2019-12-16] MEDS: Ferrous Sulfate TAB* 325 MG PO SCH (09:24)
[2019-12-16] MEDS ORDERED: Phenol 1.4% Spray* 177 ML BTL MT PRN (13:06)
[2019-12-16] MEDS ORDERED: guaiFENesin 100 mg/5 ml LIQ unit dose cup PO PRN (13:07)
[2019-12-16] MEDS: cefTRIAXone(*) 1 GM in NS 0.9% 50 ML* 50 ML IVPB SCH (16:18)
--- NOTE | 2019-12-16 16:41 | PN ---
Subjective Date of Service: 12/16/19 Interval History: Pt c/o sore throat, cough is getting better. Able to talk nonstop for several minutes, appears very hyperactive. Family History: Unchanged from Admission Social History: Unchanged from Admission Past Medical History: Unchanged from Admission Objective Active Medications: Acetaminophen (Tylenol Tab*) 650 mg PO Q6H PRN PRN Reason: MILD PAIN or TEMP > 100.4 Last Admin: 12/15/19 23:34 Dose: 650 mg Albuterol (Ventolin 2.5 Mg/3 Ml Neb.Sharon*) 2.5 mg INH Q2H PRN PRN Reason: SOB/WHEEZING Albuterol/Ipratropium (Duoneb (Albuterol 2.5 Mg/Ipratropium 0.5 Mg)) 1 neb INH [id number] AWAKE [facility] Aspirin (Aspirin Ec Tab*) 81 mg PO DAILY [facility] Last Admin: 12/16/19 09:24 Dose: 81 mg Atorvastatin Calcium (Lipitor*) 10 mg PO DAILY [facility] Last Admin: 12/16/19 09:24 Dose: 10 mg Benzonatate (Tessalon Cap*) 100 mg PO BID PRN PRN Reason: COUGH Last Admin: 12/16/19 03:52 Dose: 100 mg Calcium Carbonate (Tums*) 500 mg PO Q4H PRN PRN Reason: DYSPEPSIA Last Admin: 12/15/19 23:35 Dose: 500 mg Enoxaparin Sodium (Lovenox(*)) 40 mg SUBCUT Q24H [facility] Last Admin: 12/15/19 16:02 Dose: 40 mg Ferrous Sulfate (Ferrous Sulfate Tab*) 325 mg PO DAILY [facility] Last Admin: 12/16/19 09:24 Dose: 325 mg Guaifenesin (Robitussin 100 Mg/5ml Liq) 5 ml PO Q4H PRN PRN Reason: COUGH Azithromycin 250 mg/ Sodium (Chloride) 250 mls @ 250 mls/hr IVPB Q24H [facility] Last Admin: 12/15/19 16:30 Dose: 250 mls/hr Ceftriaxone Sodium 1 gm/ (Sodium Chloride) 50 mls @ 200 mls/hr IVPB Q24H [facility] Last Admin: 12/16/19 16:18 Dose: 200 mls/hr Lisinopril (Prinivil Tab*) 20 mg PO DAILY [facility] Last Admin: 12/16/19 09:24 Dose: 20 mg Magnesium Oxide (Magox 400 Tab*) 800 mg PO DAILY [facility] Last Admin: 12/16/19 09:24 Dose: 800 mg Mometasone Furoate/Formoterol Fumar (Dulera 200/5 Mdi*) 2 puff INH BID [facility]; Protocol Last Admin: 12/16/19 07:44 Dose: 2 puff Ondansetron HCl (Zofran Inj*) 4 mg IV Q6H PRN PRN Reason: NAUSEA Phenol/Menthol (Chloroseptic Throat Faith*) 1 spray MT TID PRN PRN Reason: SORE THROAT Prednisone (Deltasone 20 Mg Tab) 60 mg PO DAILY [facility] Roflumilast (Daliresp (Nf)) 500 mcg PO DAILY [facility] Last Admin: 12/16/19 09:24 Dose: 500 mcg Throat Lozenges (Chloraseptic Cisco*) 1 cisco PO Q6H PRN PRN Reason: SORE THROAT Last Admin: 12/16/19 07:33 Dose: 1 cisco Tiotropium [place] (Spiriva Respimat 2.5 Mcg) 2 puff INH DAILY [facility] Last Admin: 12/16/19 07:45 Dose: 2 puff Vital Signs - 8 hr 12/16/19 12/16/19 11:15 11:32 Temperature 98.4 F Pulse Rate 104 99 Respiratory 15 21 Rate Blood Pressure 136/83 (mmHg) O2 Sat by Pulse 99 100 Oximetry Oxygen Devices in Use Now: Nasal Cannula Appearance: 64 yo M in nAD, aAOx3 Eyes: No Scleral Icterus, PERRLA Ears/Nose/Mouth/Throat: NL Teeth, Lips, Gums, Mucous Membranes Moist Neck: NL Appearance and Movements; NL JVP, Trachea Midline Respiratory: Symmetrical Chest Expansion and Respiratory Effort, - - wheezes b/ l improving Cardiovascular: NL Sounds; No Murmurs; No JVD Abdominal: NL Sounds; No Tenderness; No Distention, No Hepatosplenomegaly Lymphatic: No Cervical Adenopathy Extremities: No Edema, No Clubbing, Cyanosis Skin: No Rash or Ulcers, No Nodules or Sclerosis Neurological: Alert and Oriented x 3, NL Muscle Strength and Tone Result Diagrams: 12/14/19 05:38 12/15/19 09:01 Microbiology and Other Data: Microbiology 12/13/19 16:10 Gram Stain - Final Sputum Expectorated Assess/Plan/Problems-Billing Assessment: 64 yo M with h/o 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 -Solumedrol IV to Prednisone PO in AM (3) HTN (hypertension) Comment: - cont lisinopril continue to monitor (4) Creatinine elevation Comment: improved (5) DVT prophylaxis Comment: -SQ Lovenox Status and Disposition: inpatient
[2019-12-16] MEDS: Azithromycin IV(*) 250 MG in NS 0.9% 250 ML* 250 ML IVPB SCH (16:52)
[2019-12-16] MEDS: Enoxaparin(*) 40 MG/0.4 ML SYR SUBCUT SCH (16:55)
[2019-12-17] MEDS: Albuterol/Ipratropium NEB.SOL* Albuterol 2.5 MG/Ipratropium 0.5 MG 3 ML INH SCH ×3 (01:10→13:02)
[2019-12-17] MEDS: Benzocaine/Menthol LOZ* 1 LOZENGE PO PRN (07:18)
[2019-12-17] MEDS: SPIRIVA Respimat* (tiotropium) 2.5 mcg/inh Inhaler INH SCH (07:35)
[2019-12-17] MEDS: Mometasone/Formoter 200/5 MDI INH SCH (07:35)
[2019-12-17] MEDS: Lisinopril TAB* 10 MG PO SCH (08:10)
[2019-12-17] MEDS: Atorvastatin* 10 MG TAB PO SCH (08:10)
[2019-12-17] MEDS: Ferrous Sulfate TAB* 325 MG PO SCH (08:10)
[2019-12-17] MEDS: ROFLUMILAST 500 MCG PO SCH (08:10)
[2019-12-17] MEDS: Magnesium Oxide TAB* 400 MG PO SCH (08:10)
[2019-12-17] MEDS: Aspirin EC TAB* 81 MG TAB.EC PO SCH (08:10)
[2019-12-17] MEDS: Calcium Carbonate CHEW TAB* 500 MG (TUMS) PO PRN (08:11)
[2019-12-17] MEDS ORDERED: Azithromycin TAB* 250 MG PO ONE (11:52)
[2019-12-17 15:31] VITALS: BP 162/94
--- NOTE | 2019-12-18 00:21 | DS ---
CC: Cathy Lindo NP * DISCHARGE SUMMARY: DATE OF ADMISSION: 12/14/19 DATE OF DISCHARGE: 12/17/19 PRIMARY CARE PROVIDER: Cathy Lindo NP from [place]. DISPOSITION AT DISCHARGE: Home. CONDITION ON DISCHARGE: Stable. DISCHARGE DIAGNOSES: 1. Pneumonia. 2. Chronic obstructive pulmonary disease exacerbation. 3. Acute respiratory failure on top of chronic respiratory failure, hypoxemic. The patient has been discharged on oxygen continuously 4 to 5 liters nasal cannula. SECONDARY DIAGNOSES: 1. Mild creatinine elevation at admission, likely due to acute illness. 2. Chronic obstructive pulmonary disease chronic with chronic hypoxic respiratory failure at baseline at 3 to 4 liters of oxygen at home. 3. Hypertension. 4. Hyperlipidemia. MEDICATIONS ON DISCHARGE: Include: 1. Prednisone taper 40 mg daily for 2 days and 20 mg daily for 2 days and 10 mg daily for 2 days and stop. 2. Cefdinir 300 mg b.i.d. for the next 2 days to continue 7 days treatment of cephalosporin third generation. Patient completed azithromycin treatment during his hospital stay. Remaining medications that are unchanged from admission and from home include: 1. Albuterol inhaler on p.r.n. basis. 2. Albuterol nebulizer on p.r.n. basis. 3. Aspirin 81 mg daily. 4. Symbicort 160/4.5 two inhalations b.i.d. 5. Ferrous sulfate 325 mg daily. 6. Lisinopril 20 mg daily. 7. Roflumilast 500 mcg daily. 8. Zocor 20 mg daily. 9. Spiriva one inhalation daily. DIAGNOSTIC STUDIES/LAB DATA: Laboratory data and studies performed during the hospital stay included: On 12/14/19, white blood cell count 7.3, hemoglobin 12.1, hematocrit 35 and platelets of 338. Sodium 139, potassium 4.1, chloride 103, carbon dioxide 29, BUN 24, creatinine 1.17. Liver functions were performed on admission and they were unremarkable. HOSPITALIZATION COURSE: Leo Gonzalez is a 64-year-old male with history of significant COPD, who stated that he used to be on lung transplant list and he has "30% of his lungs left," who presented to the hospital complaining of shortness of breath for 5 weeks with cough, increasing hypoxemia. The patient was febrile on presentation and did not have a marked leukocytosis on evaluation in the ED. His portable chest x-ray showed, impression: "High probability for pneumonia in the right upper lobe. resolution. Evidence of advanced chronic obstructive pulmonary disease and emphysema." The patient was admitted to the hospital treated with broad spectrum antibiotics. His microbiology studies were negative for strep pneumo antigen and legionella antigen in the urine and blood. Cultures showed no growth for 3 days. Sputum culture showed "normal Marli." The patient did very well on antibiotics and parenteral steroid treatment. He slowly improved with his bronchospasm as well as oxygen need, although he is little bit higher with his oxygen needs at his baseline and he has been discharged on 4 to 5 liters of oxygen. Today, prior to discharge, he ambulated with oxygen of 4 liters with good exercise tolerance. He is going to be discharged home with recommendation to follow up with Cathy Lindo in 4 to 7 days. PHYSICAL EXAM: At the time of discharge, blood pressure of 131/81, heart rate of 78 and regular, respiratory rate 17, oxygen saturation 99% on 5 liters of oxygen nasal cannula, temperature 98.1. General: The patient is a very pleasant 64-year- old male, who is not in acute distress. He is alert and oriented x3. HEENT: Head: Atraumatic, normocephalic. Eyes: Pupils are equal , reactive to light and accommodation. Oropharynx is clear. Mucosa moist. Neck: Supple. No JVD. No bruits bilaterally. Cardiovascular: Regular rate and rhythm. No murmurs. Respiratory: Distant breath sounds throughout with scant wheezes in bilateral mid and lower lungs much improved from prior. Abdomen: Soft, nontender. Bowel sounds are present in all 4 quadrants. Extremities: There is no edema. Pulses are +2 bilaterally. No clubbing or cyanosis. On neuro evaluation, speech clear. Cranial nerves II through XII grossly intact. Motor strength is 5/5 bilaterally. Please note that this is a short summary of the patient's hospitalization. Please refer to further medical records for details. TIME SPENT: Approximately 40 minutes was spent in preparation of the patient's discharge. [id number]/CPS #: [id number] MTDD
== END 2019-12-17 12:25 | disposition home or self-care (01) | DRG 193 ==
LOC: ED 13:43 → MED 15:53 → OBSVTOIN 12-14 13:29
PROVIDERS: ADMIT Internal Medicine; ATTEND Internal Medicine
DX: J18.9 Pneumonia, unspecified organism (principal); J96.21 Acute and chronic respiratory failure with hypoxia; J44.0 Chronic obstructive pulmonary disease with (acute) lower respiratory infection; J44.1 Chronic obstructive pulmonary disease with (acute) exacerbation; Z99.81 Dependence on supplemental oxygen; I10 Essential (primary) hypertension; E78.5 Hyperlipidemia, unspecified; J98.01 Acute bronchospasm; Z79.51 Long term (current) use of inhaled steroids; Z79.899 Other long term (current) drug therapy; Z83.3 Family history of diabetes mellitus; Z82.49 Family history of ischemic heart disease and other diseases of the circulatory system; Z82.5 Family history of asthma and other chronic lower respiratory diseases; Z87.891 Personal history of nicotine dependence; R82.998 Other abnormal findings in urine
CPT/HCPCS: 36415; 71045; 80048; 80053; 82607; 82746; 83605; 83735; 83880; 84484; 85025; 86140; 87040; 87070; 87205; 87899; 93005; 94640; 96365; 96375; 99283; A9270-GY; G0378; J0456; J0696; J1650; J2920; J2930; J3475; J3535; J7512

== ENCOUNTER 2022-06-13 19:51 | Inpatient (IN) ==
[2022-06-13] MEDS ORDERED: Lactated Ringers SEPSIS* BAG 2,250 ML IV ONE (20:42)
[2022-06-13 21:42] LABS: Hematocrit 31 % (42-52); Hemoglobin 10.2 g/dL (14.0-18.0); Mean Corpuscular HGB Conc 33 g/dL (31-36); Mean Corpuscular Hemoglobin 33 pg (27-31); Mean Corpuscular Volume 99 fL (80-94); Mean Platelet Volume 9.7 fL (7.4-10.4); Platelet Count 500 10^3/uL (150-450); Red Blood Count 3.11 10^6 /uL (4.18-5.48); Red Cell Distribution Width 17 % (10-15); White Blood Count 24.3 10^3/uL (3.5-10.8)
[2022-06-13 21:51] LABS: Activated Partial Thrombo Time 30.8 seconds (26.0-38.0); INR 1.23 (0.89-1.11)
[2022-06-13 22:11] LABS: Potassium 4.4 mmol/L (3.5-5.0)
[2022-06-13 22:12] LABS: Albumin 2.3 g/dL (3.2-5.2); Albumin/Globulin Ratio 0.5 (1-3); C Reactive Protein 370.8 mg/L (<8.01); Calcium 8.6 mg/dL (8.6-10.3); Globulin 4.4 g/dL (2-4); Total Bilirubin 1.4 mg/dL (0.2-1.0); Total Protein 6.7 g/dL (6.4-8.9); eGFR CKD-EPI 25.5 (>60)
[2022-06-13] MEDS ORDERED: Cefepime 2 GM in Dextrose 2 GM/50 ML BAG IV ONE (22:30)
[2022-06-13] MEDS ORDERED: Vancomycin 1,000 MG in NS 0.9% 250 ml 250 ML IVPB ONE (22:30)
[2022-06-13 22:36] LABS: RBC Morphology Normal (Normal)
[2022-06-13 22:37] LABS: ABS Basophils 0.2 10^3/ul (0-0.2); ABS Eosinophils 0.3 10^3/ul (0-0.6); ABS Lymphocytes 1.8 10^3/ul (1.0-4.8); ABS Monocytes 1.8 10^3/ul (0-0.8); ABS Neutrophils 20.2 10^3/ul (1.5-7.7); Eosinophil % 1.4 %; Lymphocyte % 7.3 %
[2022-06-13 23:27] LABS: Rapid Strep Molecular Negative (Negative)
[2022-06-13 23:56] LABS: High Sensitivity Troponin 1 Hr 15 pg/mL (<20)
[2022-06-14] MEDS ORDERED: Vancomycin per Pharmacy 1 EA NOTE FOLLOW UP SCH (01:00)
[2022-06-14] MEDS ORDERED: NS 0.9% 1000 ml BAG 1,000 ML IV SCH ×2 (01:00→16:17)
[2022-06-14 01:01] LABS: Urine Appearance Clear; Urine Bilirubin Negative (Negative); Urine Blood Negative (Negative); Urine Color Yellow; Urine Glucose Negative (Negative); Urine Ketones Negative (Negative); Urine Nitrite Negative (Negative); Urine Protein 1+ (30 mg/dL) (Negative); Urine Urobilinogen 1.0 (Negative) (Negative); Urine pH 5.5 (5.0-9.0)
[2022-06-14 01:13] LABS: Urine Bacteria Absent (Absent); Urine Red Blood Cell Trace(0-2/hpf) (Absent); Urine White Blood Cell Trace(0-5/hpf) (Absent)
[2022-06-14] MEDS ORDERED: Azithromycin 500 MG IV - ED ONCE IVPB ONE (02:00)
[2022-06-14] MEDS ORDERED: Enoxaparin 30 MG/0.3 ML SYR SUBCUT SCH (02:00)
[2022-06-14] MEDS ORDERED: Albuterol HFA INHALER 8 gm MDI INH PRN (02:06)
[2022-06-14] MEDS: Enoxaparin 30 MG/0.3 ML SYR SUBCUT SCH (03:19)
[2022-06-14] MEDS ORDERED: Famotidine IV 10 MG/ML 2 ml VIAL (20 mg) IV SLOW PU ONE (04:11)
[2022-06-14] MEDS ORDERED: Benzocaine/Menthol LOZ MT ONE (04:12)
[2022-06-14] MEDS ORDERED: Al Hydrox/Mg Hydrox/Simet LIQ 30 ML UDC PO ONE (04:12)
[2022-06-14 06:31] LABS: Hematocrit 28 % (42-52); Hemoglobin 9.5 g/dL (14.0-18.0); Mean Corpuscular HGB Conc 34 g/dL (31-36); Mean Corpuscular Hemoglobin 33 pg (27-31); Mean Corpuscular Volume 98 fL (80-94); Platelet Count 461 10^3/uL (150-450); Red Blood Count 2.84 10^6 /uL (4.18-5.48); Red Cell Distribution Width 16 % (10-15); White Blood Count 25.8 10^3/uL (3.5-10.8)
[2022-06-14 06:49] LABS: Blood Urea Nitrogen 49 mg/dL (6-24); CO2 Carbon Dioxide 25 mmol/L (22-32); Calcium 8.2 mg/dL (8.6-10.3); Chloride 104 mmol/L (101-111); Glucose 108 mg/dL (70-100); Sodium 137 mmol/L (135-145); eGFR CKD-EPI 31.5 (>60)
[2022-06-14] MEDS: Aspirin EC 81 mg TAB.EC (enteric coated) PO SCH (07:51)
[2022-06-14 07:52] LABS: Anion Gap 8 mmol/L (2-11)
[2022-06-14] MEDS: CMCS: Roflumilast 500 mcg TAB (NF) PO SCH (07:52)
[2022-06-14] MEDS: Mometasone/Formoter 200/5 MDI INH SCH ×2 (08:13→19:04)
[2022-06-14] MEDS: SPIRIVA Respimat (tiotropium) 2.5 mcg/inh Inhaler INH SCH (08:14)
[2022-06-14 08:46] LABS: ABS Basophils 0.1 10^3/ul (0-0.2); ABS Eosinophils 1.3 10^3/ul (0-0.6); ABS Lymphocytes 1.9 10^3/ul (1.0-4.8); ABS Monocytes 2.1 10^3/ul (0-0.8); ABS Neutrophils 20.5 10^3/ul (1.5-7.7); Eosinophil % 4.9 %; Lymphocyte % 7.2 %
[2022-06-14 08:49] LABS: Hypochromasia 2+; Macrocytosis 3+; Target Cells 2+
[2022-06-14] MEDS ORDERED: Vancomycin Random Level NOTE FOLLOW UP ONE (12:00)
[2022-06-14] MEDS: Cefepime 1 GM in Dextrose 1 GM/50 ML BAG IV SCH ×2 (13:05→23:27)
[2022-06-14] MEDS ORDERED: guaiFENesin/CODIENE 100mg/10mg 5 ML UDC PO ONE (15:46)
[2022-06-14] MEDS ORDERED: Levalbuterol 1.25MG/0.5ML NEB.SOL INH ONE (15:50)
[2022-06-14] MEDS: Levalbuterol 1.25MG/0.5ML NEB.SOL INH SCH (19:01)
[2022-06-14] MEDS: methylPREDNISolone SOD SUCC 40 mg/ml 1 ml VIAL IV SCH (20:05)
[2022-06-14] MEDS: guaiFENesin/CODIENE 100mg/10mg 5 ML UDC PO PRN (20:09)
[2022-06-15] MEDS: Levalbuterol 1.25MG/0.5ML NEB.SOL INH SCH ×4 (00:36→19:27)
[2022-06-15] MEDS: guaiFENesin/CODIENE 100mg/10mg 5 ML UDC PO PRN ×3 (00:54→21:33)
[2022-06-15] MEDS: methylPREDNISolone SOD SUCC 40 mg/ml 1 ml VIAL IV SCH ×3 (02:53→17:46)
[2022-06-15] MEDS ORDERED: Benzocaine/Menthol LOZ MT ONE (03:39)
[2022-06-15] MEDS: Enoxaparin 30 MG/0.3 ML SYR SUBCUT SCH (05:05)
[2022-06-15] MEDS ORDERED: Azithromycin 500 mg/250 ml NS 500 MG/250 ML BAG IVPB SCH (06:00)
[2022-06-15 06:17] LABS: Hematocrit 28 % (42-52); Hemoglobin 9.1 g/dL (14.0-18.0); Mean Corpuscular HGB Conc 33 g/dL (31-36); Mean Corpuscular Hemoglobin 33 pg (27-31); Mean Corpuscular Volume 99 fL (80-94); Mean Platelet Volume 10.1 fL (7.4-10.4); Platelet Count 404 10^3/uL (150-450); Red Blood Count 2.79 10^6 /uL (4.18-5.48); Red Cell Distribution Width 16 % (10-15); White Blood Count 24.9 10^3/uL (3.5-10.8)
[2022-06-15 06:26] LABS: ABS Basophils 0.1 10^3/ul (0-0.2); ABS Lymphocytes 1.8 10^3/ul (1.0-4.8); ABS Monocytes 0.9 10^3/ul (0-0.8); ABS Neutrophils 22.1 10^3/ul (1.5-7.7); Eosinophil % 0.1 %; Lymphocyte % 7.3 %
[2022-06-15 06:38] LABS: ALT 16 U/L (7-52); AST 42 U/L (13-39); Albumin 1.9 g/dL (3.2-5.2); Albumin/Globulin Ratio 0.5 (1-3); Alkaline Phosphatase 137 U/L (35-149); Anion Gap 10 mmol/L (2-11); Blood Urea Nitrogen 47 mg/dL (6-24); CO2 Carbon Dioxide 21 mmol/L (22-32); Calcium 8.2 mg/dL (8.6-10.3); Chloride 106 mmol/L (101-111); Glucose 161 mg/dL (70-100); Potassium 4.8 mmol/L (3.5-5.0); Sodium 137 mmol/L (135-145); Total Protein 5.9 g/dL (6.4-8.9); eGFR CKD-EPI 36.8 (>60)
[2022-06-15] MEDS: Mometasone/Formoter 200/5 MDI INH SCH ×2 (08:24→19:27)
[2022-06-15] MEDS: SPIRIVA Respimat (tiotropium) 2.5 mcg/inh Inhaler INH SCH (08:24)
[2022-06-15] MEDS: Aspirin EC 81 mg TAB.EC (enteric coated) PO SCH (08:58)
[2022-06-15] MEDS: Cefepime 1 GM in Dextrose 1 GM/50 ML BAG IV SCH ×2 (10:46→22:25)
[2022-06-15 10:48] LABS: Folate 7.04 ng/mL (5.90-24.80)
[2022-06-15 10:49] LABS: Vitamin B12 > 1450 pg/mL (180-914)
[2022-06-15] MEDS: CMCS: Roflumilast 500 mcg TAB (NF) PO SCH (10:57)
[2022-06-15] MEDS: NS 0.9% 1000 ml BAG 1,000 ML IV SCH (10:58)
[2022-06-15] MEDS: Benzocaine/Menthol LOZ PO PRN ×2 (12:09→21:33)
[2022-06-15] MEDS: metroNIDAZOLE IV 500 MG/100ML 500 MG/100 ML BAG IVPB SCH (14:55)
[2022-06-16] MEDS: Levalbuterol 1.25MG/0.5ML NEB.SOL INH SCH ×4 (00:34→19:39)
[2022-06-16] MEDS: NS 0.9% 1000 ml BAG 1,000 ML IV SCH ×3 (00:42→18:42)
[2022-06-16] MEDS: metroNIDAZOLE IV 500 MG/100ML 500 MG/100 ML BAG IVPB SCH (01:01)
[2022-06-16] MEDS: methylPREDNISolone SOD SUCC 40 mg/ml 1 ml VIAL IV SCH ×3 (01:58→18:42)
[2022-06-16] MEDS: guaiFENesin/CODIENE 100mg/10mg 5 ML UDC PO PRN ×4 (02:06→21:39)
[2022-06-16] MEDS: Benzocaine/Menthol LOZ PO PRN ×3 (05:18→21:39)
[2022-06-16] MEDS: Enoxaparin 30 MG/0.3 ML SYR SUBCUT SCH (05:19)
[2022-06-16 06:16] LABS: Hematocrit 25 % (42-52); Hemoglobin 8.1 g/dL (14.0-18.0); Mean Corpuscular HGB Conc 33 g/dL (31-36); Mean Corpuscular Hemoglobin 33 pg (27-31); Mean Corpuscular Volume 99 fL (80-94); Mean Platelet Volume 9.9 fL (7.4-10.4); Platelet Count 391 10^3/uL (150-450); Red Blood Count 2.49 10^6 /uL (4.18-5.48); Red Cell Distribution Width 16 % (10-15)
[2022-06-16 06:33] LABS: Calcium 7.9 mg/dL (8.6-10.3); Potassium 4.7 mmol/L (3.5-5.0); eGFR CKD-EPI 38.2 (>60)
[2022-06-16] MEDS: SPIRIVA Respimat (tiotropium) 2.5 mcg/inh Inhaler INH SCH (07:25)
[2022-06-16] MEDS: Mometasone/Formoter 200/5 MDI INH SCH ×2 (07:27→20:01)
[2022-06-16] MEDS: Aspirin EC 81 mg TAB.EC (enteric coated) PO SCH (09:29)
[2022-06-16] MEDS: CMCS: Roflumilast 500 mcg TAB (NF) PO SCH (09:29)
[2022-06-16 09:33] LABS: ABS Lymphocytes 1.9 10^3/ul (1.0-4.8); ABS Monocytes 1.1 10^3/ul (0-0.8); Lymphocyte % 9.8 %
[2022-06-16] MEDS: Cefepime 1 GM in Dextrose 1 GM/50 ML BAG IV SCH ×2 (11:26→22:52)
[2022-06-16 11:50] LABS: HIV 4th Generation Nonreactive (Nonreactive)
[2022-06-17] MEDS: Levalbuterol 1.25MG/0.5ML NEB.SOL INH SCH ×4 (01:35→20:09)
[2022-06-17] MEDS: metroNIDAZOLE IV 500 MG/100ML 500 MG/100 ML BAG IVPB SCH ×2 (01:45→13:53)
[2022-06-17] MEDS: methylPREDNISolone SOD SUCC 40 mg/ml 1 ml VIAL IV SCH ×2 (01:45→10:29)
[2022-06-17] MEDS: Benzocaine/Menthol LOZ PO PRN ×2 (04:51→23:21)
[2022-06-17] MEDS: guaiFENesin/CODIENE 100mg/10mg 5 ML UDC PO PRN ×2 (04:51→23:21)
[2022-06-17] MEDS: Enoxaparin 30 MG/0.3 ML SYR SUBCUT SCH (04:54)
[2022-06-17 07:54] LABS: Hematocrit 25 % (42-52); Hemoglobin 8.5 g/dL (14.0-18.0); Mean Corpuscular HGB Conc 34 g/dL (31-36); Mean Corpuscular Hemoglobin 34 pg (27-31); Mean Corpuscular Volume 99 fL (80-94); Mean Platelet Volume 9.4 fL (7.4-10.4); Platelet Count 374 10^3/uL (150-450); Red Blood Count 2.53 10^6 /uL (4.18-5.48); Red Cell Distribution Width 16 % (10-15); White Blood Count 14.8 10^3/uL (3.5-10.8)
[2022-06-17] MEDS: SPIRIVA Respimat (tiotropium) 2.5 mcg/inh Inhaler INH SCH (07:55)
[2022-06-17] MEDS: Mometasone/Formoter 200/5 MDI INH SCH ×2 (07:56→20:09)
[2022-06-17 08:20] LABS: ABS Lymphocytes 1.5 10^3/ul (1.0-4.8); ABS Neutrophils 12.3 10^3/ul (1.5-7.7); Lymphocyte % 10.1 %
[2022-06-17 08:21] LABS: Target Cells 1+
[2022-06-17 08:32] LABS: Calcium 8.2 mg/dL (8.6-10.3); Potassium 4.9 mmol/L (3.5-5.0); eGFR CKD-EPI 35.7 (>60)
[2022-06-17] MEDS: Aspirin EC 81 mg TAB.EC (enteric coated) PO SCH (10:28)
[2022-06-17] MEDS: CMCS: Roflumilast 500 mcg TAB (NF) PO SCH (10:29)
[2022-06-17] MEDS: Cefepime 1 GM in Dextrose 1 GM/50 ML BAG IV SCH ×2 (10:33→23:26)
[2022-06-17] MEDS: NS 0.9% 1000 ml BAG 1,000 ML IV SCH ×3 (11:26→23:24)
[2022-06-17] MEDS ORDERED: Polyethylene Glycol 3350 17 GM PACKET PO PRN (16:24)
[2022-06-17] MEDS ORDERED: Senna TAB 8.6 mg TAB PO PRN (16:24)
[2022-06-18] MEDS: Levalbuterol 1.25MG/0.5ML NEB.SOL INH SCH ×4 (00:56→21:30)
[2022-06-18] MEDS: metroNIDAZOLE IV 500 MG/100ML 500 MG/100 ML BAG IVPB SCH ×2 (02:09→13:05)
[2022-06-18] MEDS ORDERED: Calcium Carb (TUMS) 500 mg CHEW TAB PO ONE (02:19)
[2022-06-18] MEDS: Enoxaparin 30 MG/0.3 ML SYR SUBCUT SCH (05:04)
[2022-06-18 06:06] LABS: Calcium 7.7 mg/dL (8.6-10.3); Potassium 4.4 mmol/L (3.5-5.0); eGFR CKD-EPI 40.7 (>60)
[2022-06-18] MEDS: Aspirin EC 81 mg TAB.EC (enteric coated) PO SCH (07:38)
[2022-06-18] MEDS: CMCS: Roflumilast 500 mcg TAB (NF) PO SCH (07:39)
[2022-06-18] MEDS: NS 0.9% 1000 ml BAG 1,000 ML IV SCH (07:41)
[2022-06-18] MEDS: SPIRIVA Respimat (tiotropium) 2.5 mcg/inh Inhaler INH SCH (08:00)
[2022-06-18] MEDS: Mometasone/Formoter 200/5 MDI INH SCH ×2 (08:00→21:31)
[2022-06-18] MEDS: Cefepime 1 GM in Dextrose 1 GM/50 ML BAG IV SCH ×2 (10:12→22:46)
[2022-06-18] MEDS: Benzocaine/Menthol LOZ PO PRN ×2 (13:00→22:39)
[2022-06-18] MEDS: guaiFENesin/CODIENE 100mg/10mg 5 ML UDC PO PRN (22:39)
[2022-06-19] MEDS: Levalbuterol 1.25MG/0.5ML NEB.SOL INH SCH ×4 (01:56→19:12)
[2022-06-19] MEDS: metroNIDAZOLE IV 500 MG/100ML 500 MG/100 ML BAG IVPB SCH ×2 (02:03→14:13)
[2022-06-19] MEDS: guaiFENesin/CODIENE 100mg/10mg 5 ML UDC PO PRN ×3 (02:08→22:44)
[2022-06-19] MEDS: Benzocaine/Menthol LOZ PO PRN ×2 (02:09→22:44)
[2022-06-19] MEDS: Enoxaparin 30 MG/0.3 ML SYR SUBCUT SCH (05:34)
[2022-06-19] MEDS: Mometasone/Formoter 200/5 MDI INH SCH ×2 (07:54→19:13)
[2022-06-19] MEDS: SPIRIVA Respimat (tiotropium) 2.5 mcg/inh Inhaler INH SCH (07:54)
[2022-06-19] MEDS: CMCS: Roflumilast 500 mcg TAB (NF) PO SCH (09:29)
[2022-06-19] MEDS: Aspirin EC 81 mg TAB.EC (enteric coated) PO SCH (09:29)
[2022-06-19] MEDS: Cefepime 1 GM in Dextrose 1 GM/50 ML BAG IV SCH (12:14)
[2022-06-19] MEDS: cefTRIAXone 1 gm/50 mL D5W 1 GM/50 ML BAG IV SCH (12:30)
[2022-06-19 13:13] LABS: C Reactive Protein 69.18 mg/L (<8.01)
[2022-06-19] MEDS: Nystatin SUSPENSION 100,000 UNITS/ML UDC PO SCH ×2 (17:42→22:45)
[2022-06-20] MEDS: Levalbuterol 1.25MG/0.5ML NEB.SOL INH SCH ×4 (01:05→19:57)
[2022-06-20] MEDS: metroNIDAZOLE IV 500 MG/100ML 500 MG/100 ML BAG IVPB SCH ×2 (02:02→13:23)
[2022-06-20] MEDS: guaiFENesin/CODIENE 100mg/10mg 5 ML UDC PO PRN ×5 (02:48→21:30)
[2022-06-20] MEDS: Benzocaine/Menthol LOZ PO PRN ×5 (05:02→21:30)
[2022-06-20] MEDS: Enoxaparin 30 MG/0.3 ML SYR SUBCUT SCH (05:05)
[2022-06-20 05:32] LABS: Hematocrit 25 % (42-52); Mean Corpuscular HGB Conc 32 g/dL (31-36); Mean Corpuscular Hemoglobin 31 pg (27-31); Mean Corpuscular Volume 98 fL (80-94); Platelet Count 377 10^3/uL (150-450); Red Blood Count 2.58 10^6 /uL (4.18-5.48); Red Cell Distribution Width 17 % (10-15)
[2022-06-20 05:48] LABS: ABS Basophils 0.1 10^3/ul (0-0.2); ABS Eosinophils 0.1 10^3/ul (0-0.6); ABS Lymphocytes 2.4 10^3/ul (1.0-4.8); ABS Monocytes 1.9 10^3/ul (0-0.8); ABS Neutrophils 22.4 10^3/ul (1.5-7.7); Eosinophil % 0.4 %
[2022-06-20 06:02] LABS: Calcium 7.6 mg/dL (8.6-10.3); Potassium 3.8 mmol/L (3.5-5.0); eGFR CKD-EPI 51.1 (>60)
[2022-06-20] MEDS: Mometasone/Formoter 200/5 MDI INH SCH ×2 (07:55→19:57)
[2022-06-20] MEDS: SPIRIVA Respimat (tiotropium) 2.5 mcg/inh Inhaler INH SCH (07:55)
[2022-06-20] MEDS: CMCS: Roflumilast 500 mcg TAB (NF) PO SCH (09:43)
[2022-06-20] MEDS: Nystatin SUSPENSION 100,000 UNITS/ML UDC PO SCH ×4 (09:43→20:52)
[2022-06-20] MEDS: Aspirin EC 81 mg TAB.EC (enteric coated) PO SCH ×2 (09:43→20:52)
[2022-06-20] MEDS: cefTRIAXone 1 gm/50 mL D5W 1 GM/50 ML BAG IV SCH (12:37)
[2022-06-20] MEDS ORDERED: Potassium Chlor 20 meq TAB.ER PO ONE (15:55)
[2022-06-20] MEDS ORDERED: Ondansetron 4 mg VIAL 2 MG/ML 2 ml VIAL IV PRN (21:39)
[2022-06-21] MEDS: Levalbuterol 1.25MG/0.5ML NEB.SOL INH SCH ×4 (01:07→19:14)
[2022-06-21] MEDS: metroNIDAZOLE IV 500 MG/100ML 500 MG/100 ML BAG IVPB SCH ×2 (01:53→13:39)
[2022-06-21] MEDS: Benzocaine/Menthol LOZ PO PRN ×2 (05:13→23:26)
[2022-06-21] MEDS: guaiFENesin/CODIENE 100mg/10mg 5 ML UDC PO PRN (05:13)
[2022-06-21 05:31] LABS: Hematocrit 23 % (42-52); Hemoglobin 7.5 g/dL (14.0-18.0); Mean Corpuscular HGB Conc 32 g/dL (31-36); Mean Corpuscular Hemoglobin 32 pg (27-31); Mean Corpuscular Volume 99 fL (80-94); Mean Platelet Volume 9.9 fL (7.4-10.4); Platelet Count 378 10^3/uL (150-450); Red Blood Count 2.38 10^6 /uL (4.18-5.48); Red Cell Distribution Width 16 % (10-15); White Blood Count 24.3 10^3/uL (3.5-10.8)
[2022-06-21 05:43] LABS: ABS Basophils 0.1 10^3/ul (0-0.2); ABS Eosinophils 0.1 10^3/ul (0-0.6); ABS Lymphocytes 2.7 10^3/ul (1.0-4.8); ABS Neutrophils 19.3 10^3/ul (1.5-7.7); Eosinophil % 0.4 %; Lymphocyte % 11.3 %
[2022-06-21 06:14] LABS: Calcium 7.5 mg/dL (8.6-10.3); Magnesium 1.6 mg/dL (1.9-2.7); Potassium 4.5 mmol/L (3.5-5.0); eGFR CKD-EPI 50.3 (>60)
[2022-06-21] MEDS ORDERED: Magnesium Sulfate 2 gm BAG 2 GM/50 ML BAG IVPB ONE (07:05)
[2022-06-21] MEDS ORDERED: Iron Sucrose 200 MG in NS 0.9% 100 ml BAG 100 ML IVPB ONE (07:10)
[2022-06-21 08:02] LABS: Ferritin 1069.4 ng/mL (24-336)
[2022-06-21] MEDS: Mometasone/Formoter 200/5 MDI INH SCH ×2 (08:43→19:15)
[2022-06-21] MEDS: SPIRIVA Respimat (tiotropium) 2.5 mcg/inh Inhaler INH SCH (08:54)
[2022-06-21] MEDS: Nystatin SUSPENSION 100,000 UNITS/ML UDC PO SCH ×4 (10:14→19:08)
[2022-06-21] MEDS: CMCS: Roflumilast 500 mcg TAB (NF) PO SCH (10:20)
[2022-06-21] MEDS: cefTRIAXone 1 gm/50 mL D5W 1 GM/50 ML BAG IV SCH (11:16)
[2022-06-21] MEDS ORDERED: Digoxin IV 0.5 MG/2 ML AMP (0.25 MG/ML) IV SLOW PU ONE ×2 (13:16→19:00)
[2022-06-21] MEDS: Aspirin EC 81 mg TAB.EC (enteric coated) PO SCH (19:07)
[2022-06-22] MEDS: Levalbuterol 1.25MG/0.5ML NEB.SOL INH SCH ×4 (01:11→19:42)
[2022-06-22 06:38] LABS: Hematocrit 24 % (42-52); Hemoglobin 7.5 g/dL (14.0-18.0); Mean Corpuscular HGB Conc 32 g/dL (31-36); Mean Corpuscular Hemoglobin 32 pg (27-31); Mean Corpuscular Volume 99 fL (80-94); Mean Platelet Volume 10.1 fL (7.4-10.4); Platelet Count 407 10^3/uL (150-450); Red Blood Count 2.39 10^6 /uL (4.18-5.48); Red Cell Distribution Width 17 % (10-15); White Blood Count 22.3 10^3/uL (3.5-10.8)
[2022-06-22] MEDS: Mometasone/Formoter 200/5 MDI INH SCH ×2 (07:02→19:42)
[2022-06-22] MEDS: SPIRIVA Respimat (tiotropium) 2.5 mcg/inh Inhaler INH SCH (07:02)
[2022-06-22 07:04] LABS: Calcium 7.7 mg/dL (8.6-10.3); Magnesium 1.8 mg/dL (1.9-2.7); Potassium 4.4 mmol/L (3.5-5.0); eGFR CKD-EPI 52.8 (>60)
[2022-06-22] MEDS ORDERED: Magnesium Sulfate 2 gm BAG 2 GM/50 ML BAG IVPB ONE (07:18)
[2022-06-22 07:37] LABS: ABS Lymphocytes 2.6 10^3/ul (1.0-4.8); ABS Monocytes 1.8 10^3/ul (0-0.8); ABS Neutrophils 17.8 10^3/ul (1.5-7.7); Eosinophil % 0.2 %; Lymphocyte % 11.7 %; Target Cells 2+
[2022-06-22 08:00] LABS: Digoxin 1.6 ng/ml (0.8-2.0)
[2022-06-22] MEDS: Nystatin SUSPENSION 100,000 UNITS/ML UDC PO SCH ×4 (08:33→20:22)
[2022-06-22] MEDS: CMCS: Roflumilast 500 mcg TAB (NF) PO SCH (08:34)
[2022-06-22] MEDS ORDERED: Ondansetron 4 mg VIAL 2 MG/ML 2 ml VIAL IV PRN (10:22)
[2022-06-22] MEDS: cefTRIAXone 1 gm/50 mL D5W 1 GM/50 ML BAG IV SCH (12:13)
[2022-06-22] MEDS: Aspirin EC 81 mg TAB.EC (enteric coated) PO SCH (20:23)
[2022-06-23] MEDS: Levalbuterol 1.25MG/0.5ML NEB.SOL INH SCH ×3 (02:27→13:03)
[2022-06-23] MEDS: Mometasone/Formoter 200/5 MDI INH SCH (06:54)
[2022-06-23] MEDS: SPIRIVA Respimat (tiotropium) 2.5 mcg/inh Inhaler INH SCH ×2 (06:54→07:02)
[2022-06-23] MEDS: CMCS: Roflumilast 500 mcg TAB (NF) PO SCH (09:44)
[2022-06-23] MEDS: Nystatin SUSPENSION 100,000 UNITS/ML UDC PO SCH ×3 (09:45→16:55)
[2022-06-23 09:56] LABS: Hematocrit 25 % (42-52); Mean Corpuscular HGB Conc 32 g/dL (31-36); Mean Corpuscular Hemoglobin 32 pg (27-31); Mean Corpuscular Volume 99 fL (80-94); Mean Platelet Volume 9.8 fL (7.4-10.4); Platelet Count 478 10^3/uL (150-450); Red Blood Count 2.54 10^6 /uL (4.18-5.48); Red Cell Distribution Width 17 % (10-15); White Blood Count 27.5 10^3/uL (3.5-10.8)
[2022-06-23 10:16] LABS: Calcium 7.8 mg/dL (8.6-10.3); Magnesium 1.8 mg/dL (1.9-2.7); Potassium 4.1 mmol/L (3.5-5.0); eGFR CKD-EPI 60.8 (>60)
[2022-06-23] MEDS ORDERED: Magnesium Sulfate 2 gm BAG 2 GM/50 ML BAG IVPB ONE (11:31)
[2022-06-23 11:42] LABS: C Reactive Protein 57.73 mg/L (<8.01)
[2022-06-23 11:52] LABS: Digoxin 1.1 ng/ml (0.8-2.0)
[2022-06-23 12:11] LABS: ABS Basophils 0.1 10^3/ul (0-0.2); ABS Eosinophils 0.1 10^3/ul (0-0.6); ABS Lymphocytes 2.3 10^3/ul (1.0-4.8); ABS Monocytes 2.3 10^3/ul (0-0.8); ABS Neutrophils 22.7 10^3/ul (1.5-7.7); Eosinophil % 0.4 %; Lymphocyte % 8.2 %; Nucleated Red Blood Cells % 0.1
[2022-06-23] MEDS: cefTRIAXone 1 gm/50 mL D5W 1 GM/50 ML BAG IV SCH (12:58)
[2022-06-23 15:59] VITALS: BP 115/69
== END 2022-06-23 18:20 | disposition home health service (06) | DRG 871 ==
LOC: ED 19:51 → EDHOLD 06-14 00:57 → SUATTDRO 06-14 00:57 → EDHOLD 06-14 16:36 → MED 06-14 17:41 → MEDTELE 06-20 22:16
PROVIDERS: ADMIT Hospitalist; ATTEND Hospitalist